=== PATIENT | male | born 1960 ===

== ENCOUNTER 2018-12-17 08:08 | Outpatient (REF) | payer BC, SELFPAY ==
[2018-12-17 22:28] LABS: Anion Gap 8.9 mmol/L (3-11); BUN 16 mg/dL (7-18); CO2 27.1 mmol/L (21.0-32.0); CREATININE 0.98 mg/dL (0.70-1.30); Calcium 8.8 mg/dL (8.5-10.1); Chloride 104 mmol/L (98-107); Cholesterol 112 mg/dL (50-200); Glucose 100 mg/dL (70-100); HDL Cholesterol 40 mg/dL (40-60); LDL CHOLESTEROL 60 mg/dL (<100); Potassium 4.7 mmol/L (3.5-5.1); Sodium 140 mmol/L (136-145); Triglyceride 43 mg/dL (30-150)
== END 2018-12-17 08:28 ==
LOC: NCHCN 08:08
PROVIDERS: Visit Provider Internal Medicine
DX: I25.10 Atherosclerotic heart disease of native coronary artery without angina pectoris (principal)
CPT/HCPCS: 80048; 80061; 83721

== ENCOUNTER 2020-02-21 20:25 | Outpatient (REF) | payer OTHER, SELFPAY ==
[2020-02-21 21:17] LABS: Hemoglobin A1C 5.8 % (3.8-5.6)
[2020-02-21 21:40] LABS: ALT 35 U/L (16-63); AST 21 U/L (15-37); Albumin 3.8 g/dL (3.4-5.0); Alkaline Phosphatase 113 U/L (46-116); BUN 14 mg/dL (7-18); Bilirubin, Total 0.3 mg/dL (0.2-1.0); CREATININE 1.09 mg/dL (0.70-1.30); Calcium 8.7 mg/dL (8.5-10.1); Calculated LDL 55 mg/dL (<100); Chloride 104 mmol/L (98-107); Cholesterol 136 mg/dL (<200); Glucose 150 mg/dL (74-106); HDL Cholesterol 39 mg/dL (40-60); Sodium 139 mmol/L (136-145); Triglyceride 212 mg/dL (<150)
== END 2020-02-21 20:45 ==
LOC: NCHCN 20:25
PROVIDERS: Visit Provider Internal Medicine
DX: I51.0 Cardiac septal defect, acquired (principal); I10 Essential (primary) hypertension; E66.9 Obesity, unspecified
CPT/HCPCS: 80053; 80061; 83036

== ENCOUNTER 2020-04-03 13:44 | Outpatient (REF) | payer OTHER, SELFPAY ==
[2020-04-03 20:01] LABS: BUN 17 mg/dL (7-18); CREATININE 1.27 mg/dL (0.70-1.30); Calcium 8.9 mg/dL (8.5-10.1); Chloride 99 mmol/L (98-107); Estimated GFR 57.65 (mL/min/1.73m2); Glucose 163 mg/dL (74-106); Sodium 136 mmol/L (136-145)
== END 2020-04-03 14:04 ==
LOC: NCHCN 13:44
PROVIDERS: Visit Provider Internal Medicine
DX: I10 Essential (primary) hypertension (principal)
CPT/HCPCS: 80048

== ENCOUNTER 2020-04-28 08:13 | Outpatient (REF) | payer OTHER, SELFPAY ==
[2020-04-28 21:01] LABS: Anion Gap 11.2 mmol/L (3-11); BUN 19 mg/dL (7-18); CO2 25.8 mmol/L (21.0-32.0); CREATININE 1.12 mg/dL (0.70-1.30); Calcium 8.9 mg/dL (8.5-10.1); Chloride 99 mmol/L (98-107); Glucose 114 mg/dL (74-106); Sodium 136 mmol/L (136-145)
== END 2020-04-28 08:33 ==
LOC: NCHCN 08:13
PROVIDERS: Internal Medicine; Visit Provider Family Medicine
DX: I10 Essential (primary) hypertension (principal)
CPT/HCPCS: 80048

== ENCOUNTER → 2020-10-16 07:32 | Outpatient (REF) | payer OTHER, SELFPAY ==
[2020-10-16 13:44] LABS: Anion Gap 6.1 mmol/L (3-11); BUN 17 mg/dL (7-18); CO2 28.9 mmol/L (21.0-32.0); CREATININE 1.15 mg/dL (0.70-1.30); Calcium 8.7 mg/dL (8.5-10.1); Chloride 101 mmol/L (98-107); Glucose 92 mg/dL (74-106); Potassium 4.1 mmol/L (3.5-5.1); Sodium 136 mmol/L (136-145)
[2020-10-16 14:11] LABS: Hemoglobin A1C 5.9 % (<5.7)
== END ==
LOC: NCHCN 07:32
PROVIDERS: Visit Provider Internal Medicine
DX: R73.03 Prediabetes (principal); I10 Essential (primary) hypertension
CPT/HCPCS: 80048; 83036